=== PATIENT | male | born 1960 | race Caucasian/White ===

== ENCOUNTER → 2018-01-31 | Outpatient (CLI) | payer OTHER ==
[2016-03-10 13:03] VITALS: BMI 29.3
[~2018-01-31] MED LIST: ASPI81TA94 PO; DIPH0.5D12 IM; ESOM20CA2 PO; LANS15CA54 PO; LEVO-85 PO; LEVO50TA86 PO; LISI-351 PO; LISI-355 PO; LISI2.5T60 PO; LOR5/325 PO; METR-1 PO; MULT-893 PO; MULT1CAP59 PO; OMEG500C7 PO; OMEP-218 PO; UBID1CAP94 PO
--- NOTE | 2018-01-31 10:43 | RADIOLOGY IMAGING REPORT ---
[place] [facility] [place] NAME: Mo Gomez : 1960 MR: [id number] V: [id number] EXAM DATE: ORDERING PHYSICIAN: REX GONZALEZ TECHNOLOGIST: Location: [facility] Patient: Mo Gomez : 1960 Visit/Account:[id number] Date of Sevice: 01/31/2018 ACUTE ABDOMEN SERIES 3 VIEW HISTORY: Examination Right upper quadrant pain. KUB series (three films and chest film) No comparison FINDINGS: Nonspecific bowel gas pattern with moderate fecal impaction in the descending transverse and splenic flexure. Punctate density loosely grouped in the left upper medial mid abdomen under the left 12th r ib. Phleboliths in the pelvis. Chest film demonstrates no infiltrates or consolidations. No parenchymal mass lesions. Bony structures unremarkable. Slight scoliosis of the thoracic spine maximally convex to the right a t the T8 level. Lateralizing osteophytes seen. IMPRESSION: 1. Unremarkable abdominal series. Punctate calcific densities seen in the left mid upper abdomen of uncertain significance. Could conceivably represent ingested material. It appears to be too inferi or to be related to any post pancreatitis calcifications. (Previous CT scan on 03/10/2016 demonstrat ed acute pancreatitis.) Report Dictated By: Farhat Campuzano MD at 01/31/2018 10:27 AM Report E-Signed By: Farhat Campuzano MD at 01/31/2018 10:38 AM WSN:[id number]
== END ==
LOC: RAD 09:26
PROVIDERS: ATTEND Physician Assistant Medical
DX: M41.84 Other forms of scoliosis, thoracic region (principal)
CPT/HCPCS: 74022